=== PATIENT | female | born 1965 | race Caucasian/White ===

== ENCOUNTER 2019-11-02 16:02 | Emergency (ER) | payer BC ==
--- NOTE | 2019-11-02 16:13 | EDM.PDOC ---
ED HPI GENERAL MEDICAL PROBLEM - General Chief Complaint: Upper Extremity Injury/Pain Stated Complaint: injured foot Time Seen by Provider: 11/02/19 16:12 Source of Information: Reports: Patient History Limitations: Reports: No Limitations - History of Present Illness INITIAL COMMENTS - FREE TEXT/NARRATIVE: This afternoon, while [place] a [place] in grassy area, stepped in a hole causing twisting to the ankle and fall. Denies other injury from the fall with benign tib-fib other than the ankle-foot, no upper extremity or body injury. Noted swelling to the lateral aspect of the foot and presented for evaluation. No previous fracture or injury to this extremity. Onset: Today, Sudden Duration: Minutes: Location: Reports: Lower Extremity, Left Quality: Reports: Burning, Pressure Severity: Moderate Improves with: Reports: Cold Therapy Worsens with: Reports: None Context: Reports: Activity, Trauma Associated Symptoms: Reports: No Other Symptoms - Related Data Allergies Allergy/AdvReac Type Severity Reaction Status Date / Time No Known Allergies Allergy Verified 11/02/19 16:28 Home Meds: Home Meds Minocycline [Minocin] 100 mg PO DAILY 11/02/19 [History] Past Medical History - Past Surgical History Head Surgeries/Procedures: Reports: None HEENT Surgical History: Reports: Adenoidectomy, Tonsillectomy Cardiovascular Surgical History: Reports: None Respiratory Surgical History: Reports: None GI Surgical History: Reports: None Female Surgical History: Reports: Tubal Ligation Endocrine Surgical History: Reports: None Neurological Surgical History: Reports: None Musculoskeletal Surgical History: Reports: None Oncologic Surgical History: Reports: None Dermatological Surgical History: Reports: None Social & Family History - Family History Family Medical History: Noncontributory ED ROS GENERAL - Review of Systems Review Of Systems: Comprehensive ROS is negative, except as noted in HPI. ED EXAM, GENERAL - Physical Exam Exam: See Below Free Text/Narrative:: Alert oriented 3 in no acute distress. No respiratory distress is noted. There is no injury to the upper extremities, from the fall onto the grassy surface. Right lower extremities benign. Left lower extremity shows edema to the lateral aspect of the fifth tarsal metatarsal region, and edema to the distal lateral malleolus. Mild tenderness to palpation. Course - Vital Signs Last Recorded V/S: Last Vital Signs Temp 36.1 C 11/02/19 16:02 Pulse 79 11/02/19 16:02 Resp 18 11/02/19 16:02 BP 140/61 11/02/19 16:02 Pulse Ox 99 11/02/19 16:02 - Orders/Labs/Meds Orders: Active Orders 24 hr Category Date Time Status Ankle 2V Lt [CR] Stat Exams 11/02/19 16:19 Ordered Foot 2V Lt [CR] Stat Exams 11/02/19 16:20 Ordered - Re-Assessments/Exams Free Text/Narrative Re-Assessment/Exam: 11/02/19 17:30 Fit with crutches and cam boot application. Discuss safe crutch walking, with demonstration. Departure - Departure Time of Disposition: 17:31 Disposition: Home, Self-Care 01 Condition: Good Clinical Impression: Fracture of distal fibula, Fracture of metatarsal bone of left foot - Discharge Information *PRESCRIPTION DRUG MONITORING PROGRAM REVIEWED*: Not Applicable *COPY OF PRESCRIPTION DRUG MONITORING REPORT IN PATIENT ROMMEL: Not Applicable Instructions: Nondisplaced Fibular Ankle Fracture Treated With Immobilization, Adult, Metatarsal Fracture Forms: ED Department Discharge Additional Instructions: Keep Cam Walker boot in place with no weightbearing activity. You may remove for bathing/showering. You need use the crutches at all times avoiding weightbearing. You need to be seen in 10-14 days for reevaluation if everything is going well. In the event of concerns with increased pain or swelling, you should be seen sooner. Ice and elevate as much as possible today to control swelling. Orthopedic consult/podiatry consult may be arranged through your clinic if needed. Sepsis Event Note (ED) - Focused Exam Vital Signs: Vital Signs Temp Pulse Resp BP Pulse Ox 11/02/19 16:02 36.1 C 79 18 140/61 99 - Problem List & Annotations (1) Fracture of distal fibula SNOMED Code(s): 527088514 Code(s): S82.839A - OTH FRACTURE OF UPPER AND LOWER END OF UNSP FIBULA, INIT Status: Acute Priority: High Qualifiers: Encounter type: initial encounter Fracture type: closed Laterality: left (2) Fracture of metatarsal bone of left foot SNOMED Code(s): 972107789, 94134132862615572 Code(s): S92.302A - FRACTURE OF UNSP METATARSAL BONE(S), LEFT FOOT, INIT Status: Acute Priority: High Qualifiers: Encounter type: initial encounter Metatarsal bone: fifth Fracture type: closed Fracture alignment: nondisplaced Qualified Code(s): S92.355A - Nondisplaced fracture of fifth metatarsal bone, left foot, initial encounter for closed fracture - Problem List Review Problem List Initiated/Reviewed/Updated: Yes - My Orders Last 24 Hours: My Active Orders 11/02/19 16:19 Ankle 2V Lt [CR] Stat 11/02/19 16:20 Foot 2V Lt [CR] Stat - Assessment/Plan Last 24 Hours: My Active Orders 11/02/19 16:19 Ankle 2V Lt [CR] Stat 11/02/19 16:20 Foot 2V Lt [CR] Stat Plan: Keep Cam Walker boot in place with no weightbearing activity. You may remove for bathing/showering. You need use the crutches at all times avoiding weightbearing. You need to be seen in 10-14 days for reevaluation if everything is going well. In the event of concerns with increased pain or swelling, you should be seen sooner. Ice and elevate as much as possible today to control swelling. Orthopedic consult/podiatry consult may be arranged through your clinic if needed.
--- NOTE | 2019-11-02 17:19 | CR ---
[id number] RAD/RAD Foot Left 2V; [id number] RAD/RAD Ankle Left 2V EXAM: RAD Foot Left 2V, RAD Ankle Left 2V INDICATION: DEFORMITY,PAIN. COMPARISON: None. DISCUSSION: There is an acute transverse fracture of the fifth metatarsal base with about 2.5 mm of distraction. Small avulsion fracture off the tip of the distal fibula with about 3 mm distraction. 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 IMPRESSION: 1. Acute mildly distracted transverse fifth metatarsal base fracture. 2. Small avulsion fracture off the tip of the distal fibula. Ashu Dao MD 11/02/19 [id number] Thank you for allowing us to participate in the care of your patient.
== END 2019-11-02 17:29 | disposition home or self-care (01) ==
LOC: KA.ED 16:02
DX: S92.352A Displaced fracture of fifth metatarsal bone, left foot, initial encounter for closed fracture (principal); S82.832A Other fracture of upper and lower end of left fibula, initial encounter for closed fracture; W22.8XXA Striking against or struck by other objects, initial encounter; X50.1XXA Overexertion from prolonged static or awkward postures, initial encounter
CPT/HCPCS: 73600-LT; 73620-LT; 99283